=== PATIENT | male | born 1975 | race Caucasian/White ===

== ENCOUNTER 2022-04-23 16:43 | Emergency (ER) | payer BC, SELFPAY ==
[2022-04-23 16:45] VITALS: BP 107/71; PULSE 80; RESP 14; TEMP 36.8; O2SAT 94; BMI 27.8
--- NOTE | 2022-04-23 17:23 | EKG12_ITS ---
Test Reason : SOB Blood Pressure : / mmHG Vent. Rate : 080 BPM Atrial Rate : 080 BPM P-R Int : 162 ms QRS Dur : 082 ms QT Int : 380 ms P-R-T Axes : 025 064 030 degrees QTc Int : 438 ms Normal sinus rhythm Normal ECG Confirmed by BRIANNA AC MD ([id number]), editor farm journal GUANAKITO LARA ([id number]) on 04/24/2022 9:04:28 AM Referred By: NOLVIA Confirmed By:BRIANNA AC MD
--- NOTE | 2022-04-23 17:30 | NURSING ---
NO OLD EKGS
--- NOTE | 2022-04-23 17:34 | EKG12_ITS ---
Test Reason : SOB Blood Pressure : / mmHG Vent. Rate : 081 BPM Atrial Rate : 081 BPM P-R Int : 168 ms QRS Dur : 084 ms QT Int : 380 ms P-R-T Axes : 026 061 034 degrees QTc Int : 441 ms Normal sinus rhythm Normal ECG No previous ECGs available Confirmed by OSORIO ROME, BRIANNA ([id number]), scientific publications editor GUANAKITO LARA ([id number]) on 04/25/2022 1:34:35 PM Referred By: NOLVIA Confirmed By:BRIANNA AC MD
[2022-04-23 17:47] VITALS: O2SAT 98
--- NOTE | 2022-04-23 17:50 | RAD_ITS ---
STUDY: X-RAY CHEST REASON FOR EXAM: Male, 46 years old. chest pain TECHNIQUE: XR Chest 1 View COMPARISON: None FINDINGS: There is no demonstrated pleural abnormality. Normal size heart. Normal mediastinum and jose. Normal visualized pulmonary arteries. Normal visualized aortic arch and descending thoracic aorta. There are diffuse degenerative changes of the visualized thoracic spine. Normal visualized ribs, clavicles, and shoulders. There is no demonstrated abnormality of the visualized soft tissue structures of the upper abdomen. RAD/Chest 1 View (Portable) IMPRESSION: There are no acute findings. Electronically Signed: Figueroa Jackson MD at 18:08 EDT ,
[2022-04-23 17:55] LABS: Absolute Lymphocyte Count 1.12 X10^3/uL (0.83-4.51); Absolute Neutrophil Count 3.5 X10^3/uL (2.0-7.7); Basophil# 0.01 X10^3/uL; Basophil% 0.2 % (0-1); Hematocrit 38.9 % (40-54); Hemoglobin 13.2 g/dL (13.0-16.5); Lymphocyte # 1.12 X10^3/ul (0.83-4.51); Mean Corp Hgb Conc 33.9 g/dL (32-36); Mean Corpuscular Hgb 29.8 pg (27.0-32.0); Mean Corpuscular Volume 87.8 fL (80-94); Mean Platelet Vol. 8.7 fl (6.2-12.0); Monocyte# 0.39 X10^3/uL; Monocyte% 7.7 % (0-10); NRBC Flagged by Analyzer 0 % (0-5); Neutrophil # 3.45 X10^3/uL (2.7-7.7); Neutrophil % 67.9 % (47-70); Platelet Count 204 K/mm3 (150-450); RBC Distribution Width CV 11.5 % (11.6-14.6); RBC Distribution Width SD 37.2 fl (35.1-43.9); Red Blood Count 4.43 M/mm3 (4.6-6.2); White Blood Count 5.1 K/mm3 (4.4-11.0)
--- NOTE | 2022-04-23 17:57 | EDS_ITS ---
HPI History of Present Illness Chief Complaint: Shortness of Breath Informant: patient and spouse/S.O. Onset/Context/Timing Onset: Days Context: gradual Timing: Intermittent Quality: Positive for Dyspnea on exertion Current Severity: Mild Maximum Severity: Mild Worsened by: Exertion and Coughing Relieved by: Nothing Associated Symptoms cough; Negative for rhinorrhea, clear sputum, white sputum, yellow sputum or green sputum Chest Pain: Positive for None; Negative for Pleuritic Narrative Narrative: 46-year-old male history of esophageal cancer and esophagectomy done at [facility] about 3 weeks ago. Feeding tube placed. Has never had a DVT or PE. Has been short of breath since procedure worse the last couple days. Denies any chest pain. No hemoptysis. He has had no fever. He has a nonproductive cough. No leg pain or swelling. PE Risk Factors: Positive for Cancer, Recent immobilization and Recent surgery; Negative for OCP + Smoking + > 35, Prior DVT or PE and Recent travel Prior similar symptoms: No Recent Illness/Hospitalization: Yes [facility] Medical History Esophagus cancer Home Medications apixaban [Eliquis DVT-PE Treat 30D Start] 5 mg PO BID 30 Days #60 tab 04/23/22 [Rx Last Taken Unknown] Allergy/AdvReac Type Severity Reaction Status Date / Time azithromycin AdvReac Other Verified 04/23/22 16:45 Social History Smoking Status: Never smoker ROS ROS ED ROS Narrative Shortness of breath. Cough. Review of Systems ROS Unobtainable: Denies due to encephalopathy Constitutional Constitutional ED: Denies fever(s) Eyes Eyes: Denies change in vision ENT ENT ED: Denies ear pain, rhinorrhea or sore throat Cardiovascular Cardiovascular: Denies chest pain or palpitations Respiratory/Chest Respiratory/Chest: Reports cough, dyspnea and dyspnea on exertion; Denies sputum Gastrointestinal Gastrointestinal: Denies abdominal pain, constipation, diarrhea, melena, nausea or vomiting Genitourinary Genitourinary ED: Denies dysuria Musculoskeletal Musculoskeletal: Denies myalgias Integumentary Denies rash Neurologic Neurologic: Denies headache(s) Psychiatric Psychiatric: Denies depression Endocrine Endocrinology: Denies polyuria Hematologic/Lymphatic Hematologic/Lymphatic: Denies easy bruising Allergic/Immunologic Allergic/Immunologic ED: Denies urticaria EXAM Physical Exam Narrative Exam Narrative: 46-year-old male no acute distress. Vital signs stable afebrile. Pulse ox 94% on room air no signs hypoxia. HEENT exam unremarkable. Neck nontender no lymphadenopathy. Lungs clear to auscultation bilaterally. Heart regular rhythm no murmur. Abdomen soft nontender normal bowel sounds no peritoneal signs. Prior well-healed laparoscopic incisions. Back nontender. Well-healed incisions. Extremities moves all 4. Calves are nontender without edema or cords. Equal symmetrical radial pulses. Neurologically is awake and alert. Const Vital Signs: 04/23/22 16:45 04/23/22 17:47 Temperature 98.2 F Temperature Source Temporal Pulse Rate 80 Respiratory Rate 14 Blood Pressure 107/71 Blood Pressure Mean 83 Pulse Ox 94 98 Oxygen Delivery Method Room Air Room Air Positive well nourished and well developed; Negative for obese, cachectic, contractures or unkempt General Appearance ED: well developed and NAD; Negative for unkempt, cachectic, contractures or pallor Nutritional Appearance: Negative for cachectic or obese HEENT Reports moist mucous membranes atraumatic; Negative for trauma or tenderness Eyes PERRL and EOMs intact bilaterally General Eye ED: Negative for pale conjunctiva or scleral icterus Neck no lymphadenopathy, supple, no meningeal signs and no JVD General: Negative for tenderness Resp normal respiratory effort and clear to auscultation bilaterally Auscultation: Negative for rales, rhonchi or wheezes Cardio regular rate, regular rhythm, S1 normal heart sound, S2 normal heart sound and no murmurs GI non-tender, non-distended and no masses Auscultation: normoactive bowel sounds Palpation: soft; Negative for tender, guarding or rebound tenderness present Back/Spine no CVA tenderness and normal to inspection General Back: Negative for CVA tenderness or tenderness Extremity normal to inspection General Extremety ED: Negative for edema or tenderness General Extremity: Negative for edema Neuro oriented x3 Sensorium / Orientation: alert, oriented to person, oriented to place and oriented to time; Negative for orientation impaired, confused, lethargic or stuporous Motor Exam: strength 5/5 throughout Psych mental status grossly normal Appearance: Negative for unkempt Mood & Affect: Negative for depressed or tearful Thought Process: normal thought process Skin no wounds General Skin Exam: Negative for jaundice or pallor Lesions: no lesions Rashes: no rashes MDM MDM MDM Narrative Medical decision making narrative: 46-year-old history of esophageal CA status post recent partial esophagectomy. Complaining shortness of breath. Undergo cardiac work-up and a D-dimer. Differential would include URI, effusion, pneumonia, postsurgical atelectasis, rule out PE versus other etiologies. Repeat exam patient is doing well at 7:30 PM. We went over his test results and his CAT scan findings of bilateral PEs. I also spoke to his oncologist. Both the patient myself and his oncologist are comfortable with him being discharged home. He will be started on Eliquis. I will have it filled tonight here at the hospital pharmacy. He will start it prior to discharge. He will follow-up with his oncologist. Lab Data Attestation: I reviewed the patient's lab results. Lab results narrative: CBC shows white count of 5. H&H of 13.2 and 38. Chemistries unremarkable gap of 6 normal BUN and creatinine. Glucose 98. Troponin is 11. D-dimer elevated 14. CTA of the chest shows bilateral pulmonary emboli. Read by the radiologist and reviewed by me. Labs: Laboratory Results - last 24 hr 04/23/22 04/23/22 04/23/22 17:45 17:45 17:45 WBC 5.1 RBC 4.43 L Hgb 13.2 Hct 38.9 L MCV 87.8 MCH 29.8 MCHC 33.9 RDW Std Deviation 37.2 RDW Coeff of Merlyn 11.5 L Plt Count 204 MPV 8.7 Immature Gran % (Auto) 0.200 Neut % (Auto) 67.9 Lymph % (Auto) 22.0 [place] % (Auto) 7.7 Eos % (Auto) 2.0 Baso % (Auto) 0.2 Absolute Neuts (auto) 3.5 Absolute Lymphs (auto) 1.12 Nucleated RBC % 0 D-Dimer Quant (PE/DVT) 14.04 H* Sodium 140 Potassium 4.0 Chloride 104 Carbon Dioxide 30.0 Anion Gap 6 BUN 14 Creatinine 0.82 Estim Creat Clear Calc 104.12 Est GFR (MDRD) Af Amer 130 Est GFR (MDRD) Non-Af 107 BUN/Creatinine Ratio 17.1 Glucose 98 Calcium 9.0 Troponin I High Sens 11 Radiography Chest X-Ray - ED: 1 View, Read by ED Physician, Heart, Lungs, Mediastinum, Bony Structures, No Acute Disease and Chronic Changes Diagnostic Testing: Clinical Impression(s) from Imaging Studies Chest X-Ray 04/23/22 17:50 IMPRESSION: There are no acute findings. Electronically Signed: Figueroa Jackson MD at 18:08 EDT , Chest CTA 04/23/22 18:19 IMPRESSION: 1. There is a compression deformity of the spine at level: T9 . These are age-indeterminate. MRI could further evaluate if of concern. 2. Bilateral pulmonary embolism with no saddle embolus. No heart strain. 3. There is is a right pleural effusion. Critical finding called and case discussed. Electronically Signed: Figueroa Jackson MD at 19:04 EDT , ADDENDUM: 04/23/22 1918 IMPRESSION: 1. There is a compression deformity of the spine at level: T9 . These are age-indeterminate. MRI could further evaluate if of concern. 2. Bilateral pulmonary embolism with no saddle embolus. No heart strain. 3. There is is a right pleural effusion. Critical finding called and case discussed. N.B. : The above Results were Read Back by Figueroa Jackson MD to MD haja, and understanding confirmed on 04/23/2022 19:11:23 (ET). Electronically Signed: Figueroa Jackson MD at 19:04 EDT , Chest x-ray, portable, single view interpreted myself shows no acute abnormality. No infiltrate. No effusion. Normal cardiac silhouette. Rhythm Strip Rhythm Strip: Sinus Rhythm Rate: 80 Ectopy: None EKG Initial EKG: Attestation: I personally reviewed and interpreted this EKG as follows: Interpretation: Sinus Rhythm and No Acute Injury Pattern Comments: Normal sinus rhythm rate of 80 no acute signs of HI nor ischemia. No dysrhythmia. Discharge Plan Triage Chief Complaint: Shortness of Breath ED Provider: Alexandr Toledo Dx/Rx/DC Orders Clinical Impression: Acute dyspnea, Bilateral pulmonary embolism, Hx of esophageal malignancy Instructions: Pulmonary Embolism, ED Dyspnea Prescriptions: New Eliquis DVT-PE Treat 30D Start 5 mg (74 tabs) tablets,dose pack 5 mg PO BID 30 Days Qty: 60 RF: 0 Primary Care Provider: Francesca Villagomez Referrals: Ananth Moore DO [STAFF PHYSICIAN] - 1 Week if not improving Activity Restrictions/Additional Instructions: The reason for your shortness of breath is because you have blood clots both sides of your lungs. You will be treated with the blood thinner Eliquis. Take it as prescribed. Your doctor will most likely continue the prescription for 6 months. You can discuss that with him. Be very careful anytime you are on a blood thinner if you get caught you will bleed much more easily. Also if you have any head injury while on the blood thinner you need to be evaluated. Follow-up with your doctor. Return if feeling worse. Disposition Disposition: Home, Self Care
[2022-04-23 18:13] LABS: Anion Gap 6 (5-15); BUN 14 mg/dL (7-18); BUN/Creat Ratio 17.1 RATIO (10-20); Chloride 104 mmol/L (98-107); Creatinine, Serum 0.82 mg/dL (0.70-1.30); EST Glomerular Filtration Rate 107 mL/min (>60); Est Glom Filt Rate - Afr Amer 130 mL/min (>60); Estimated Creatinine Clearance 104.12 ml/min; Glucose 98 mg/dL (74-106); Sodium Level 140 mmol/L (136-145); Troponin-I HS (w/2H Reflex) 11 pg/mL (3.0-78.0)
[2022-04-23 18:18] LABS: D-Dimer Quantitative (DVT/PE) 14.04 FEU/ug/m (0.27-0.49)
--- NOTE | 2022-04-23 18:19 | CT_ITS ---
We are attempting to reach an attending provider to discuss findings. An addendum with communication details will be sent when the communication is complete. EXAM: CT ANGIOGRAPHY CHEST WITHOUT AND WITH INTRAVENOUS CONTRAST CLINICAL INDICATION: dyspnea TECHNIQUE: Helically acquired angiography images were obtained of the chest without and with intravenous contrast. This CT exam was performed using one or more of the following dose reduction techniques: automated exposure control, adjustment of the mA and/or kV according to patient size, and/or use of iterative reconstruction technique. This report was created using [employer] report generation technology. MIP reconstructed images were created and reviewed. CONTRAST: IV 100mL Isovue-370 RADIATION DOSE: CTDIvol = 17.66 mGy, DLP = 363.88 mGy-cm COMPARISON: None. FINDINGS: PULMONARY ARTERIES: Bilateral pulmonary embolism with no saddle embolus. No heart strain. Pulmonary emboli of the first order right upper lobe right middle lobe and right lower lobe branches. These extend to the third order branches. Pulmonary emboli of the first order left lingular and left lower lobe branches. These extend to the third order branches. Normal in caliber. AORTA: There is atherosclerotic calcification of the aortic arch with tortuosity and elongation of the aortic arch and descending thoracic aorta. Normal in caliber. No evidence of dissection. GREAT VESSELS OF AORTIC ARCH: Unremarkable. Normal in caliber. No evidence of dissection. LUNGS AND PLEURAL SPACES: There is is a right pleural effusion. No mass. No pneumothorax. HEART: There are calcifications of the coronary arteries. No pericardial effusion. No signs of right heart strain, ratio of right ventricle to left ventricle measures less than 1. MEDIASTINUM: Unremarkable. No mediastinal or hilar adenopathy. Esophagus is unremarkable. No hiatal hernia. THYROID: Unremarkable. No thyroid lesions. BONES/JOINTS: There is a compression deformity of the spine at level: T9 . These are age-indeterminate. MRI could further evaluate if of concern. There are degenerative changes of the shoulders. There are multi-level degenerative changes of the thoracic spine. No suspicious lytic or blastic abnormality. STOMACH AND BOWEL: Evidence for prior gastric pull-through procedure. CT/CTA Chest W/WO Contrast IMPRESSION: 1. There is a compression deformity of the spine at level: T9 . These are age-indeterminate. MRI could further evaluate if of concern. 2. Bilateral pulmonary embolism with no saddle embolus. No heart strain. 3. There is is a right pleural effusion. Critical finding called and case discussed. Electronically Signed: Figueroa Jackson MD at 19:04 EDT ,
[2022-04-23 18:44] VITALS: BP 115/72; PULSE 107; RESP 30; O2SAT 95
[2022-04-23 19:31] VITALS: BP 109/79; PULSE 97; RESP 21; O2SAT 93
[2022-04-23 19:51] LABS: Reflex Troponin-HS? (from REC) Y
== END 2022-04-23 20:15 | disposition home or self-care (01) ==
PROVIDERS: Emergency Provider Emergency Medicine; PCP Family Medicine; Visit Provider Emergency Medicine
DX: I26.99 Other pulmonary embolism without acute cor pulmonale (principal); Z85.01 Personal history of malignant neoplasm of esophagus
CPT/HCPCS: 71045; 71275; 80048; 84484; 85025; 85379; 93005; 99284; Q9967